=== PATIENT | female | born 1995 ===

== ENCOUNTER 2017-02-23 15:56 | Emergency (ER) | payer MEDICAID ==
[2017-02-23 15:56] VITALS: BMI 21.4
[2017-02-23 16:17] VITALS: BP 108/82; PULSE 70; RESP 18; TEMP 98.2; O2SAT 99
--- NOTE | 2017-02-23 16:20 | ED PDOC ---
HPI: Female Pain Chief Complaint (Nursing): Female Genitourinary Chief Complaint (Provider): frequency and suprapubic pain History Per: Patient History/Exam Limitations: no limitations Onset/Duration Of Symptoms: Days (1 day), Intermittent Episodes Current Symptoms Are (Timing): Intermittent Episodes Severity: Moderate Pain Scale Rating Of: 6 Quality Of Discomfort: Cramping Associated Symptoms: Urinary Symptoms (urgency and frequency). denies: Fever, Chills, Nausea, Vomiting Alleviating Factors: OTC Meds (motrin) Additional History Per: Patient Additional Complaint(s): 21 y/o F hx of eczema, asthma presenting with urinary urgency, frequency and suprapubic discomfort x 1 day. Suprapubic pain is cramping in nature ''like a period''. Last intercourse 7 days ago, denies history of STIs, consistent condom use, 1 male partner. Denies flank pain, hematuria, vaginal bleeding or discharge, cp, sob, n/v/diarrhea, changes in appetite, unexplained weight loss. Also states having irregular menses x 1 month, with increased flow, moderate pain. Patient ''worried about her abnormal periods''. No thyroid problems reported. Not taking any medications PMD: Dr. Wells Abnormal Vaginal Bleeding: No Last Menstral Period: 02/13/17 Past Medical History Vital Signs: Last Vital Signs Temp 98.2 F 02/23/17 16:14 Pulse 70 02/23/17 16:14 Resp 18 02/23/17 16:14 BP 108/82 02/23/17 16:14 Pulse Ox 99 02/23/17 16:14 - Medical History PMH: Asthma - Family History Family History: States: Unknown Family Hx - Home Medications Home Medications: Ambulatory Orders Medication Instructions Recorded Albuterol [Albuterol] 1 NEB Q4H PRN 06/24/14 Acetaminophen with Codeine 1 tab PO Q6 #10 tab 10/12/15 [Tylenol with Codeine No. 3 300 mg-30 mg] Penicillin V Potassium 250 mg PO Q6 #28 tab 10/12/15 Nitrofurantoin Macrocrystals 100 mg PO BID #20 cap 02/23/17 [Macrobid] - Allergies Allergies/Adverse Reactions: Allergies Allergy/AdvReac Type Severity Reaction Status Date / Time No Known Allergies Allergy Verified 06/24/14 13:50 Review of Systems ROS Statement: Except As Marked, All Systems Reviewed And Found Negative Constitutional: Negative for: Fever, Chills, Sweats Genitourinary Female: Positive for: Dysuria, Frequency. Negative for: Incontinence, Hematuria, Vaginal Discharge, Vaginal Bleeding, Pelvic Pain Physical Exam - Physical Exam Appears: Positive for: Non-toxic, No Acute Distress Skin: Positive for: Normal Color, Warm, Dry Neck: Positive for: Normal, Painless ROM Cardiovascular/Chest: Positive for: Regular Rate, Rhythm, Chest Non Tender Gastrointestinal/Abdominal: Positive for: Bowel Sounds, Soft. Negative for: Tenderness, Distended, Guarding Back: Negative for: L CVA Tenderness, R CVA Tenderness Extremity: Negative for: Tenderness, Pedal Edema Neurologic/Psych: Positive for: Alert, Oriented - ECG O2 Sat by Pulse Oximetry: 99 - Progress ED Course And Treament: Dysuria UA, urine culture and sens urine preg macrobid x 10 days ER precautions discussed.Stable to DC home Disposition - Clinical Impression Clinical Impression: UTI (urinary tract infection) - Disposition Referrals: [facility] [Outside] Disposition: Routine/Home Disposition Time: 18:17 Condition: GOOD Prescriptions: Nitrofurantoin Macrocrystals [Macrobid] 100 mg PO BID #20 cap Instructions: Urinary Tract Infection in Women (ED) Forms: [facility] ED School/Work Excuse
[2017-02-23 17:44] LABS: URINE BILIRUBIN NEGATIVE (NEGATIVE); URINE BLOOD NEGATIVE (NEGATIVE); URINE COLOR YELLOW (YELLOW); URINE GLUCOSE (UA) NEG (Normal); URINE KETONE NEGATIVE (NEGATIVE); URINE LEUKOCYTE ESTERASE TRACE Leu/uL (Negative); URINE PROTEIN NEGATIVE (NEGATIVE); URINE UROBILINOGEN 0.2-1.0 mg/dL (0.2-1.0)
[2017-02-23 17:45] LABS: URINE APPEARANCE SLIGHT-CLOUDY (CLEAR)
== END 2017-02-23 18:07 | disposition home or self-care (01) ==
LOC: H.ER 15:56
DX: N39.0 Urinary tract infection, site not specified (principal); J45.909 Unspecified asthma, uncomplicated

== ENCOUNTER 2017-07-16 11:16 | Emergency (ER) | payer MEDICAID ==
[2017-07-16 11:22] VITALS: BMI 23.1
[2017-07-16 11:53] VITALS: O2SAT 98
--- NOTE | 2017-07-16 11:59 | ED PDOC ---
Lower Extremity Pain/Injury Time Seen by Provider: 07/16/17 11:53 Chief Complaint (Nursing): Lower Extremity Problem/Injury Chief Complaint (Provider): toe pain History Per: Patient History/Exam Limitations: no limitations Additional Complaint(s): 21yo F in ED for eval of left 5th toe pain-states that had sustained fx to toe 3 weeks ago, fence fell onto foot yesterday now with swelling and pain to area. unable outpt much pressure on toe. - Risk Factors DVT Risk Factors: Pos: None Past Medical History Reviewed: Historical Data, Nursing Documentation, Vital Signs Vital Signs: Last Vital Signs Temp 98.1 F 07/16/17 11:21 Pulse 71 07/16/17 11:21 Resp 18 07/16/17 11:21 BP 128/70 07/16/17 11:21 Pulse Ox 98 07/16/17 11:51 - Medical History PMH: Asthma - Family History Family History: States: Unknown Family Hx - Home Medications Home Medications: Ambulatory Orders Medication Instructions Recorded Albuterol [Albuterol] 1 NEB Q4H PRN 06/24/14 Acetaminophen with Codeine 1 tab PO Q6 #10 tab 10/12/15 [Tylenol with Codeine No. 3 300 mg-30 mg] Penicillin V Potassium 250 mg PO Q6 #28 tab 10/12/15 Nitrofurantoin Macrocrystals 100 mg PO BID #20 cap 02/23/17 [Macrobid] - Allergies Allergies/Adverse Reactions: Allergies Allergy/AdvReac Type Severity Reaction Status Date / Time No Known Allergies Allergy Verified 07/16/17 11:51 Wells Criteria for PE - Wells Criteria for Pulmonary Embolism Clinical Signs and Symptoms of DVT: No P.E is #1 Diagnosis, or Equally Likely: No Total Score: 0 Review of Systems ROS Statement: Except As Marked, All Systems Reviewed And Found Negative Musculoskeletal: Positive for: Foot Pain Physical Exam - Reviewed Nursing Documentation Reviewed: Yes Vital Signs Reviewed: Yes - Physical Exam Appears: Positive for: Well, Non-toxic, No Acute Distress Skin: Positive for: Normal Color, Warm, DRY Cardiovascular/Chest: Positive for: Regular Rate, Rhythm Respiratory: Positive for: CNT, Normal Breath Sounds Extremity: Positive for: Other (left foot: fifth toe-swelling defomirty tednerness nuevoasc intact) Neurologic/Psych: Positive for: Alert, Oriented - ECG O2 Sat by Pulse Oximetry: 98 - Progress ED Course And Treament: xray r/o fx Medical Decision Making Medical Decision Making: fx noted to fifth MTP left foot pt given gaurav tape and surgical show with f.u with pmd/podiatry Disposition - Clinical Impression Clinical Impression: Toe fracture - Patient ED Disposition Is Patient to be Admitted: No Counseled Patient/Family Regarding: Studies Performed, Diagnosis, Need For Followup, Rx Given - Disposition Referrals: [facility] [Outside] Disposition: Routine/Home Disposition Time: 12:34 Condition: STABLE Instructions: Toe Fracture (ED) Forms: [facility] (Swazi) Print Language: FIJIAN
[2017-07-16 12:52] VITALS: BP 128/78; PULSE 78; RESP 19; TEMP 97
--- NOTE | 2017-07-16 13:50 | RAD ---
PROCEDURE: Left Foot Radiographs. HISTORY: foot pain COMPARISON: None. FINDINGS: BONES: No evidence of acute displaced fracture nor dislocation. JOINTS: Normal. SOFT TISSUES: Normal. OTHER FINDINGS: None. IMPRESSION: No evidence of acute displaced fracture nor dislocation. If symptoms persist or occult fracture suspected clinically consider repeat radiographs 5-10 days as most fractures should become radiographically evident in this timeframe.
== END 2017-07-16 12:51 | disposition home or self-care (01) ==
LOC: H.ER 11:16
DX: S92.912A Unspecified fracture of left toe(s), initial encounter for closed fracture (principal); W20.8XXA Other cause of strike by thrown, projected or falling object, initial encounter

== ENCOUNTER 2017-12-14 22:56 | Emergency (ER) | payer MEDICAID ==
[2017-12-14 22:57] VITALS: BMI 23.1
--- NOTE | 2017-12-15 03:10 | ED PDOC ---
HPI: Female Pain Time Seen by Provider: 12/15/17 02:54 Chief Complaint (Nursing): Abdominal Pain Chief Complaint (Provider): possibly : vaginal bleeding History Per: Patient History/Exam Limitations: no limitations Onset/Duration Of Symptoms: Hrs Current Symptoms Are (Timing): Still Present Quality Of Discomfort: Cramping Additional History Per: Patient Additional Complaint(s): 22 y/o female presents with vaginal bleeding x 12 hours. Associated pelvic cramping. Patient states she took a test at home earlier this week and it was +. Denies fever, nausea/vomiting, chest pain, shortness of breath, palpitations, changes in bowel movements. Abnormal Vaginal Bleeding: Yes Last Menstral Period: 11/05/17 : 2 Para: 1 Miscarriage: 0 Past Medical History Reviewed: Historical Data, Nursing Documentation, Vital Signs Vital Signs: Last Vital Signs Temp 98.3 F 12/15/17 00:37 Pulse 110 H 12/15/17 00:37 Resp 17 12/15/17 00:37 BP 113/65 12/15/17 00:37 Pulse Ox 96 12/15/17 00:37 - Medical History PMH: Asthma - Surgical History Surgical History: No Surg Hx - Family History Family History: States: Unknown Family Hx - Home Medications Home Medications: Ambulatory Orders Medication Instructions Recorded Albuterol [Albuterol] 1 NEB Q4H PRN 06/24/14 Acetaminophen with Codeine 1 tab PO Q6 #10 tab 10/12/15 [Tylenol with Codeine No. 3 300 mg-30 mg] Penicillin V Potassium 250 mg PO Q6 #28 tab 10/12/15 Nitrofurantoin Macrocrystals 100 mg PO BID #20 cap 02/23/17 [Macrobid] - Allergies Allergies/Adverse Reactions: Allergies Allergy/AdvReac Type Severity Reaction Status Date / Time No Known Allergies Allergy Verified 07/16/17 11:51 Review of Systems ROS Statement: Except As Marked, All Systems Reviewed And Found Negative Genitourinary Female: Positive for: Vaginal Bleeding, Pelvic Pain Physical Exam - Reviewed Nursing Documentation Reviewed: Yes Vital Signs Reviewed: Yes - Physical Exam Appears: Positive for: Well, Non-toxic, No Acute Distress Head Exam: Positive for: ATRAUMATIC, NORMAL INSPECTION, NORMOCEPHALIC Skin: Positive for: Normal Color Eye Exam: Positive for: Normal appearance Cardiovascular/Chest: Positive for: Regular Rate, Rhythm Respiratory: Positive for: Normal Breath Sounds Gastrointestinal/Abdominal: Positive for: Bowel Sounds, Soft, Tenderness ( suprapubic, rlq, llq) Back: Positive for: Normal Inspection Extremity: Positive for: Normal ROM Neurologic/Psych: Positive for: Alert, Oriented - Laboratory Results Result Diagrams: 12/15/17 03:42 12/15/17 03:42 - ECG O2 Sat by Pulse Oximetry: 96 - Progress ED Course And Treament: labs, urine Patient educated on findings, discharged with instructions to follow up [facility] 2-3 days. Return precautions given. Disposition - Clinical Impression Clinical Impression: Vaginal bleeding - Patient ED Disposition Is Patient to be Admitted: No Counseled Patient/Family Regarding: Studies Performed, Diagnosis, Need For Followup - Disposition [facility] Disposition: Routine/Home Disposition Time: 04:50 Condition: STABLE Instructions: Dysmenorrhea (ED)
[2017-12-15 03:46] LABS: BASO # 0.1 K/uL (0.0-0.2); BASO % 0.6 % (0.0-2.0); EOS # 0.6 K/uL (0.0-0.7); EOS % 5.6 % (0.0-4.0); HEMOGLOBIN 10.8 g/dL (12.0-16.0); LYMPH # 3.2 K/uL (1.0-4.3); LYMPH % 31.7 % (20.0-40.0); MEAN CELL VOLUME 80.6 fl (81.0-99.0); MEAN CORPUSCULAR HGB CONC 33.5 g/dL (33.0-37.0); MEAN PLATELET VOLUME 9.8 fl (7.2-11.7); MONO # 0.5 K/uL (0.0-0.8); MONO % 5.4 % (0.0-10.0); NEUT # 5.7 K/uL (1.8-7.0); NEUT % 56.7 % (50.0-75.0); NRBC % 0.1 % (0.0-0.0); RED CELL DISTRIBUTION WIDTH 14.3 % (11.5-14.5); WHITE BLOOD COUNT 10.1 K/uL (4.8-10.8)
[2017-12-15 03:55] LABS: ALB/GLOB RATIO 1.2 (1.0-2.1); ALBUMIN 3.7 g/dL (3.5-5.0); ALT/SGPT 18 U/L (9-52); AST/SGOT 26 U/L (14-36); BLOOD UREA NITROGEN 12 mg/dl (7-17); CALCIUM 8.7 mg/dL (8.4-10.2); GFR AFRICAN-AMERICAN > 60; GFR NON-AFRICAN AMERICAN > 60
[2017-12-15 04:36] LABS: SQUAMOUS EPITHIAL 5 /hpf (0-5); URINE BILIRUBIN NEGATIVE (NEGATIVE); URINE BLOOD LARGE (NEGATIVE); URINE CLARITY CLOUDY (Clear); URINE COLOR YELLOW (YELLOW); URINE GLUCOSE (UA) NEG (Normal); URINE LEUKOCYTE ESTERASE TRACE Leu/uL (Negative); URINE PROTEIN 30 mg/dL (NEGATIVE); URINE UROBILINOGEN 0.2-1.0 mg/dL (0.2-1.0)
[2017-12-15 04:57] VITALS: BP 102/53; PULSE 61; RESP 14; TEMP 97.7; O2SAT 100
== END 2017-12-15 05:10 | disposition home or self-care (01) ==
LOC: H.ER 22:56
DX: N93.9 Abnormal uterine and vaginal bleeding, unspecified (principal); J45.909 Unspecified asthma, uncomplicated